=== PATIENT | female | born 1985 ===

== ENCOUNTER 2017-01-26 17:55 | Emergency (ER) | payer SELFPAY ==
[2017-01-26 17:56] VITALS: BMI 37.0
[2017-01-26 18:19] VITALS: BP 118/66; PULSE 88; RESP 19; TEMP 98.2; O2SAT 99
[2017-01-26] MEDS ORDERED: Sodium Chloride 0.9% 1,000 ML IV STA (18:22)
--- NOTE | 2017-01-26 18:41 | ED PDOC ---
HPI: Chest Pain Time Seen by Provider: 01/26/17 18:13 Chief Complaint (Nursing): Chest Pain Chief Complaint (Provider): Chest pain History Per: Patient History/Exam Limitations: no limitations Onset/Duration Of Symptoms: Days (Yesterday) Current Symptoms Are (Timing): Still Present Additional Complaint(s): Pt. with cough, nasal congestion, runny nose, chest pain left. Also left side headache mild that is not worst in her life. No dyspnea. Has room spinning dizziness. No neck pain. No numbness, tingles, weakness. No abd pain. Nausea , vomit x2 nonbloody. No leg pain. Sore throat, but able to swallow. Past Medical History Reviewed: Nursing Documentation, Vital Signs Vital Signs: Last Vital Signs Temp 98.2 F 01/26/17 18:16 Pulse 88 01/26/17 18:16 Resp 19 01/26/17 18:16 BP 118/66 01/26/17 18:16 Pulse Ox 99 01/26/17 18:43 - Medical History PMH: Asthma, Diabetes, Gastritis Denies: Hepatitis, HIV, HTN, Chronic Kidney Disease, Seizures, Sexually Transmitted Disease - Family History Family History: States: Unknown Family Hx - Social History Alcohol: None Drugs: Denies - Immunization History Hx Tetanus Toxoid Vaccination: No Hx Influenza Vaccination: No Hx Pneumococcal Vaccination: No - Home Medications Home Medications: Ambulatory Orders Medication Instructions Recorded Vit No.130/Iron/Folic 1 tab PO DAILY 05/08/16 [ Tablet] glyBURIDE [Glyburide] 5 mg PO DAILY 05/08/16 Ibuprofen [Motrin Tab] 600 mg PO Q6 PRN #30 tab 05/11/16 Amoxicillin/Clavulanate [Augmentin 1 tab PO BID #14 tab 08/04/16 875 MG-125 MG] Ibuprofen [Motrin] 600 mg PO TID 7 Days 01/26/17 - Allergies Allergies/Adverse Reactions: Allergies Allergy/AdvReac Type Severity Reaction Status Date / Time lactose Allergy RASH Verified 01/26/17 18:16 Review of Systems ROS Statement: Except As Marked, All Systems Reviewed And Found Negative ENT: Positive for: Nose Congestion, Throat Pain Respiratory: Positive for: Cough Gastrointestinal: Positive for: Nausea, Vomiting Neurological: Positive for: Headache, Dizziness Physical Exam - Reviewed Nursing Documentation Reviewed: Yes Vital Signs Reviewed: Yes - Physical Exam Appears: Positive for: Well, Non-toxic, No Acute Distress Head Exam: Positive for: ATRAUMATIC, NORMAL INSPECTION, NORMOCEPHALIC Skin: Positive for: Normal Color, Warm, DRY Eye Exam: Positive for: EOMI, Normal appearance, PERRL ENT: Positive for: Normal ENT Inspection Neck: Positive for: Normal, Painless ROM, Supple Cardiovascular/Chest: Positive for: Regular Rate, Rhythm. Negative for: Edema Respiratory: Positive for: CNT, Normal Breath Sounds Gastrointestinal/Abdominal: Positive for: Normal Exam, Bowel Sounds, Soft. Negative for: Tenderness Back: Positive for: Normal Inspection. Negative for: L CVA Tenderness, R CVA Tenderness Extremity: Positive for: Normal ROM. 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 Negative for: Motor/Sensory Deficits, Facial Droop - Laboratory Results Result Diagrams: 01/26/17 18:48 01/26/17 18:48 Interpretation Of Abn Labs: 3.5 k - ECG ECG: Positive for: Interpreted By Me, Viewed By Me ECG Rhythm: Positive for: Normal QRS, Normal ST Segment, Sinus Rhythm O2 Sat by Pulse Oximetry: 99 Pulse Ox Interpretation: Normal - Radiology X-Ray: Interpreted by Me, Viewed By Me X-Ray Interpretation: No Acute Disease - Progress ED Course And Treament: 2007: Stable. AAOx3. Pain free. Tolerated PO. Disposition - Clinical Impression Clinical Impression: Chest pain, Hypokalemia, URI (upper respiratory infection) - Patient ED Disposition Is Patient to be Admitted: No Counseled Patient/Family Regarding: Studies Performed, Diagnosis - Disposition Referrals: [facility] [Outside] - 01/28/17 Disposition: Routine/Home Disposition Time: 20:08 Condition: STABLE Additional Instructions: Return if not better in 3 days. Prescriptions: Ibuprofen [Motrin] 600 mg PO TID 7 Days Instructions: Chest Pain (ED), Upper Respiratory Infection (ED), Hypokalemia ( ED) Print Language: ARMENIAN
[2017-01-26 19:00] LABS: BASO # 0.1 K/uL (0.0-0.2); BASO % 0.7 % (0.0-2.0); EOS # 0.3 K/uL (0.0-0.7); HEMATOCRIT 40.8 % (34.0-47.0); LYMPH # 3.2 K/uL (1.0-4.3); LYMPH % 36.1 % (20.0-40.0); MEAN CELL VOLUME 87.8 fl (81.0-99.0); MEAN CORPUSCULAR HEMOGLOBIN 28.6 pg (27.0-31.0); MEAN CORPUSCULAR HGB CONC 32.6 g/dL (33.0-37.0); MONO # 0.6 K/uL (0.0-0.8); MONO % 6.3 % (0.0-10.0); NEUT # 4.8 K/uL (1.8-7.0); NEUT % 53.9 % (50.0-75.0); NRBC % 0.1 % (0.0-0.0); RED CELL DISTRIBUTION WIDTH 13.9 % (11.5-14.5); WHITE BLOOD COUNT 8.9 K/uL (4.8-10.8)
[2017-01-26 19:03] LABS: ALB/GLOB RATIO 1.3 (1.0-2.1); ALKALINE PHOSPHATASE 103 U/L (38-126); ALT/SGPT 52 U/L (9-52); AST/SGOT 34 U/L (14-36); BILIRUBIN,TOTAL 0.3 mg/dl (0.2-1.3); BLOOD UREA NITROGEN 10 mg/dl (7-17); CALCIUM 8.8 mg/dL (8.4-10.2); CARBON DIOXIDE 25 mmol/L (22-30); CHLORIDE 105 mmol/L (98-107); GFR AFRICAN-AMERICAN > 60; GLUCOSE,RANDOM 149 mg/dL (65-105); POTASSIUM 3.5 MMOL/L (3.6-5.0); SODIUM 141 mmol/l (132-148); TOTAL PROTEIN 7.8 G/DL (6.3-8.2)
[2017-01-26] MEDS ORDERED: Potassium Chloride 20 mEq ER Tab PO ONE (20:04)
[2017-01-26] MEDS ORDERED: Potassium Chloride 20 mEq ER Tab PO STA (20:05)
--- NOTE | 2017-01-27 13:56 | RAD ---
HISTORY: chest pain COMPARISON: Comparison chest 02/20/2014 FINDINGS: LUNGS: Poor inspiration with low lung volumes, mild crowded bronchovascular markings and mild bibasilar atelectasis. PLEURA: No significant pleural effusion identified, no pneumothorax apparent. CARDIOVASCULAR: Normal. OSSEOUS STRUCTURES: No significant abnormalities. VISUALIZED UPPER ABDOMEN: Normal. OTHER FINDINGS: None. IMPRESSION: Poor inspiration with low lung volumes, mild crowded bronchovascular markings and mild bibasilar atelectasis.
--- NOTE | 2017-01-30 10:18 | CARD ---
APPROVED REPORT EKG Measurement Heart [id number] CT 132P55 [id number] <Conclusion> Normal sinus rhythm Normal ECG
== END 2017-01-26 20:42 | disposition home or self-care (01) ==
LOC: H.ER 17:55
DX: J06.9 Acute upper respiratory infection, unspecified (principal); E87.6 Hypokalemia; R07.9 Chest pain, unspecified; J45.909 Unspecified asthma, uncomplicated; R91.8 Other nonspecific abnormal finding of lung field; E11.9 Type 2 diabetes mellitus without complications

== ENCOUNTER 2017-04-03 23:26 | Emergency (ER) | payer SELFPAY ==
[2017-04-03 23:26] VITALS: BMI 37.0
[2017-04-03 23:39] VITALS: RESP 16
--- NOTE | 2017-04-04 | ED PDOC ---
HPI: Abdomen Time Seen by Provider: 04/03/17 23:37 Chief Complaint (Nursing): Abdominal Pain Chief Complaint (Provider): Abdominal Pain History Per: Patient History/Exam Limitations: no limitations Onset/Duration Of Symptoms: Days (x2) Current Symptoms Are (Timing): Still Present Additional Complaint(s): Priyanka Gray is a 31 year old female with previous medical history of asthma and diabetes, who presents to the emergency department with a complaint of constant epigastric pain associated with nonbloody diarrhea, chills, nausea, dizziness and several nonbloody vomiting ongoing for 2 days. Denied any fever. Patient stated she took Pepto Bismal but felt no improvements. PMD: none provided Past Medical History Reviewed: Historical Data, Nursing Documentation, Vital Signs Vital Signs: Last Vital Signs Temp 98.4 F 04/03/17 23:37 Pulse 79 04/03/17 23:37 Resp 16 04/03/17 23:37 BP 114/64 04/03/17 23:37 Pulse Ox 100 04/04/17 02:56 - Medical History PMH: Asthma, Diabetes, Gastritis Denies: Hepatitis, HIV, HTN, Chronic Kidney Disease, Seizures, Sexually Transmitted Disease - Surgical History Surgical History: No Surg Hx - Family History Family History: States: Unknown Family Hx - Social History Current smoker - smoking cessation education provided: No Alcohol: None Drugs: Denies - Immunization History Hx Tetanus Toxoid Vaccination: No Hx Influenza Vaccination: No Hx Pneumococcal Vaccination: No - Home Medications Home Medications: Ambulatory Orders Medication Instructions Recorded Vit No.130/Iron/Folic 1 tab PO DAILY 05/08/16 [ Tablet] glyBURIDE [Glyburide] 5 mg PO DAILY 05/08/16 Ibuprofen [Motrin Tab] 600 mg PO Q6 PRN #30 tab 05/11/16 Amoxicillin/Clavulanate [Augmentin 1 tab PO BID #14 tab 08/04/16 875 MG-125 MG] Ibuprofen [Motrin] 600 mg PO TID 7 Days 01/26/17 Ondansetron ODT [Zofran ODT] 4 mg PO Q8 PRN #12 odt 04/04/17 - Allergies Allergies/Adverse Reactions: Allergies Allergy/AdvReac Type Severity Reaction Status Date / Time lactose Allergy RASH Verified 01/26/17 18:16 Review of Systems ROS Statement: Except As Marked, All Systems Reviewed And Found Negative Constitutional: Negative for: Fever Gastrointestinal: Positive for: Nausea, Vomiting (nonbloody), Abdominal Pain ( constant epigastric ), Diarrhea (nonbloody) Neurological: Positive for: Dizziness Physical Exam - Reviewed Nursing Documentation Reviewed: Yes Vital Signs Reviewed: Yes - Physical Exam Appears: Positive for: Well, Non-toxic, No Acute Distress Head Exam: Positive for: ATRAUMATIC, NORMAL INSPECTION, NORMOCEPHALIC Skin: Positive for: Normal Color ENT: Positive for: Normal ENT Inspection, Pharynx Is (within normal limits) Cardiovascular/Chest: Positive for: Regular Rate, Rhythm. Negative for: Chest Non Tender Respiratory: Positive for: Normal Breath Sounds. Negative for: Crackles, Rales , Rhonchi, Wheezing Gastrointestinal/Abdominal: Positive for: Bowel Sounds, Soft, Tenderness ( epigastric). 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 - Laboratory Results Result Diagrams: 04/04/17 00:09 04/04/17 00:09 - ECG O2 Sat by Pulse Oximetry: 100 (RA) Pulse Ox Interpretation: Normal - Progress Re-evaluation Time: 02:48 Condition: Re-examined, Improved Medical Decision Making Medical Decision Making: Initial Impression: Abdominal pain; vomiting, diarrhea Differential diagnosis: Acute gastroenteritis; pancreatitis; cholecystitis Initial Plan: * Labs * Lipase * Urine * Bentyl 10mg PO * NS 1,000ml IV per 1,000mls/hr * Zofran 4mg IVP * Re-evaluation Time: 0254 Upon provider reevaluation, patient is feeling better, medically stable and requires no further treatment in the ED at this time. Patient will be discharged home with Rx for Zofran 4mg. Counseling was provided and all questions were answered regarding diagnosis and need for follow up with PCP. There is agreement to discharge plan. Return if symptoms persist or worsen. Clinical Impression: Vomiting; Diarrhea Scribe Attestation: Documented by Key Malcolm, acting as a scribe for Najma Hunter MD. Provider Scribe Attestation: All medical record entries made by the Scribe were at my direction and personally dictated by me. I have reviewed the chart and agree that the record accurately reflects my personal performance of the history, physical exam, medical decision making, and the department course for this patient. I have also personally directed, reviewed, and agree with the discharge instructions and disposition. Disposition - Clinical Impression Clinical Impression: Vomiting and diarrhea - Patient ED Disposition Is Patient to be Admitted: No Doctor Will See Patient In The: Office Counseled Patient/Family Regarding: Studies Performed, Diagnosis, Need For Followup - Disposition Referrals: [facility] [Outside] Disposition: Routine/Home Disposition Time: 02:54 Condition: GOOD Additional Instructions: Follow up with your PCP in 2-3 days. Return for worsening. Prescriptions: Ondansetron ODT [Zofran ODT] 4 mg PO Q8 PRN #12 odt PRN Reason: Nausea/Vomiting Instructions: Gastroenteritis (DC) Print Language: NORWEGI[place]
[2017-04-04] MEDS ORDERED: Sodium Chloride 0.9% 1,000 ML IV STA (00:01)
[2017-04-04 00:41] LABS: BASO # 0.1 K/uL (0.0-0.2); BASO % 0.8 % (0.0-2.0); EOS # 0.2 K/uL (0.0-0.7); HEMATOCRIT 40.5 % (34.0-47.0); LYMPH # 3.2 K/uL (1.0-4.3); LYMPH % 46.3 % (20.0-40.0); MEAN CELL VOLUME 87.1 fl (81.0-99.0); MEAN CORPUSCULAR HEMOGLOBIN 29.1 pg (27.0-31.0); MEAN CORPUSCULAR HGB CONC 33.4 g/dL (33.0-37.0); MEAN PLATELET VOLUME 9.1 fl (7.2-11.7); MONO # 0.6 K/uL (0.0-0.8); MONO % 8.7 % (0.0-10.0); NEUT # 2.8 K/uL (1.8-7.0); NEUT % 41.2 % (50.0-75.0); NRBC % 0.1 % (0.0-0.0); RED CELL DISTRIBUTION WIDTH 13.6 % (11.5-14.5); WHITE BLOOD COUNT 6.8 K/uL (4.8-10.8)
[2017-04-04 00:49] LABS: ALB/GLOB RATIO 1.3 (1.0-2.1); ALKALINE PHOSPHATASE 99 U/L (38-126); ALT/SGPT 60 U/L (9-52); AST/SGOT 39 U/L (14-36); BILIRUBIN,TOTAL 0.4 mg/dl (0.2-1.3); BLOOD UREA NITROGEN 10 mg/dl (7-17); CALCIUM 8.7 mg/dL (8.4-10.2); CARBON DIOXIDE 22 mmol/L (22-30); CHLORIDE 107 mmol/L (98-107); GFR AFRICAN-AMERICAN > 60; GLUCOSE,RANDOM 102 mg/dL (65-105); LIPASE 114 U/L (23-300); POTASSIUM 3.4 MMOL/L (3.6-5.0); SODIUM 140 mmol/l (132-148); TOTAL PROTEIN 7.1 G/DL (6.3-8.2)
[2017-04-04 03:15] VITALS: BP 118/72; PULSE 72; TEMP 98.2; O2SAT 98
== END 2017-04-04 03:15 | disposition home or self-care (01) ==
LOC: H.ER 23:26
DX: R11.10 Vomiting, unspecified (principal); R19.7 Diarrhea, unspecified; E11.9 Type 2 diabetes mellitus without complications